=== PATIENT | male | born 1945 | race Caucasian/White ===

== ENCOUNTER → 2021-07-28 | Outpatient (CLI) | payer MEDICARE, BC ==
[~2021-07-28] MED LIST: ADVIL200 MG PO; BILBERRY PO; CIALIS5 MG PO; FLOMAX 0.40.4 MG/CAP PO; FOLIC ACID 40400 MCG PO; GLUCOSAMINE PO; LEVAQUIN 5500 MG/TA1 PO; LOTENSIN20 MG PO; MAG-OX 400400 MG/TAB PO; MULTIPLE VITAMI1 TAB PO; NORCO 325 MG-7.1 TAB PO; TYLENOL 500MG500 MG PO; VITAMIN D32000 IU PO; ZYLOPRIM 100MG100 MG PO
[2021-07-28 10:35] LABS: HEMOGLOBIN 11.2 g/dl (13.5-18.0); MEAN CELL VOLUME 99 fl (80.0-100.0); MEAN CORPUSCULAR HEMOGLOBIN 35 pg (27-31); MEAN CORPUSCULAR HGB CONC 35 g/dl (33.0-37.0); MEAN PLATELET VOLUME 8.1 fl (7.4-10.4); PLATELET COUNT 234 K/mm3 (130-400); RED BLOOD COUNT 3.24 M/mm3 (4.20-5.60); REDCELL DISTRIBUTION WIDTH-CV 15.8 % (11.5-14.5)
[2021-07-28 10:54] LABS: C-REACTIVE PROTEIN 0.6 mg/dL (0.00-0.50); CALCIUM 8.9 mg/dL (8.4-10.2); CREATININE, serum 1.18 mg/dL (0.72-1.25); MAGNESIUM 1.9 mg/dL (1.6-2.6); POTASSIUM 4.7 mmol/L (3.5-4.5)
== END ==
LOC: COL.LAB 10:14
PROVIDERS: Internal Medicine
DX: N41.9 Inflammatory disease of prostate, unspecified (principal)